=== PATIENT | male | born 1995 | race Caucasian/White ===

== ENCOUNTER 2018-02-26 01:31 | Emergency (ER) | payer BC ==
[~2018-02-26] VITALS: Ht 193 cm; Wt 78.0 kg
[~2018-02-26 01:31] MED LIST: CIPRO500 MG PO; FLEXERIL10 MG PO; MOTRIN600 MG PO; NAPROSYN500 MG PO; NAPROXEN500 MG PO; ULTRAM50 MG PO
[2018-02-26] MEDS ORDERED: NAPROSYN500 MG PO (02:07)
[2018-02-26] MEDS ORDERED: NORCO 7.5/321 TABLET PO (02:07)
[2018-02-26] MEDS ORDERED: AUGMENTIN875 MG PO (02:07)
[2018-02-26 02:31] VITALS: BP 132/76
== END 2018-02-26 02:44 | disposition home or self-care (01) ==
LOC: EME 01:31
DX: K02.9 Dental caries, unspecified (principal); F17.200 Nicotine dependence, unspecified, uncomplicated
CPT/HCPCS: 99281; 99284